=== PATIENT | female | born 1990 | race American Indian/Alaskan Native ===

== ENCOUNTER 2016-11-04 23:35 | Emergency (ER) | payer SELFPAY ==
[2016-11-05 00:05] VITALS: BP 124/56
--- NOTE | 2016-11-05 02:58 | Emergency Department Report ---
- General Chief complaint: Skin/Abscess/Foreign Body Stated complaint: CYST ON LOWER BACK/PAIN Time Seen by Provider: 11/05/16 02:42 Source: patient Mode of arrival: Ambulatory Limitations: No Limitations - History of Present Illness Initial comments: Patient comes in the ER today with complaints of an abscess to the top of her buttocks for the past 5 days. Patient states that she has had this before last summer and they had to cut it open. Patient denies any body aches, fever, vomiting, abdominal pain. MD complaint: abscess/boil -: days(s) (5) - Related Data Previous Rx's Medication Instructions Recorded Last Taken Type Acetaminophen/Codeine [Tylenol 1 tab PO Q6H PRN #20 tab 11/05/16 Unknown Rx /Codeine # 3 tab] Cephalexin [Keflex] 500 mg PO TID #30 capsule 11/05/16 Unknown Rx Fluconazole [Diflucan TAB] 150 mg PO Q72HR PRN #4 tablet 11/05/16 Unknown Rx Sulfamethoxazole/Trimethoprim 1 each PO BID #20 tablet 11/05/16 Unknown Rx [Bactrim DS TAB] Allergies Allergy/AdvReac Type Severity Reaction Status Date / Time No Known Allergies Allergy Verified 11/05/16 00:01 Abscess Boil HPI - HPI Chief Complaint: Skin/Abscess/Foreign Body Stated Complaint: CYST ON LOWER BACK/PAIN Time Seen by Provider: 11/05/16 02:42 Home Medications: Previous Rx's Medication Instructions Recorded Last Taken Type Acetaminophen/Codeine [Tylenol 1 tab PO Q6H PRN #20 tab 11/05/16 Unknown Rx /Codeine # 3 tab] Cephalexin [Keflex] 500 mg PO TID #30 capsule 11/05/16 Unknown Rx Fluconazole [Diflucan TAB] 150 mg PO Q72HR PRN #4 tablet 11/05/16 Unknown Rx Sulfamethoxazole/Trimethoprim 1 each PO BID #20 tablet 11/05/16 Unknown Rx [Bactrim DS TAB] Allergies/Adverse Reactions: Allergies Allergy/AdvReac Type Severity Reaction Status Date / Time No Known Allergies Allergy Verified 11/05/16 00:01 ED Review of Systems ROS: Stated complaint: CYST ON LOWER BACK/PAIN Other details as noted in HPI Constitutional: denies: chills, fever Eyes: denies: eye pain, eye discharge, vision change ENT: denies: ear pain, throat pain Respiratory: denies: cough, shortness of breath, wheezing Cardiovascular: denies: chest pain, palpitations Endocrine: no symptoms reported Gastrointestinal: denies: abdominal pain, nausea, diarrhea Genitourinary: denies: urgency, dysuria, discharge Musculoskeletal: denies: back pain, joint swelling, arthralgia Skin: denies: rash Neurological: denies: headache, weakness, paresthesias Psychiatric: denies: anxiety, depression Hematological/Lymphatic: denies: easy bleeding, easy bruising ED Past Medical Hx - Past Medical History Previous Medical History?: Yes Additional medical history: RECURRENT BOIL - Surgical History Past Surgical History?: No - Social History Smoking Status: Never Smoker Substance Use Type: None - Medications Home Medications: Home Medications Medication Instructions Recorded Confirmed Last Taken Type Acetaminophen/Codeine [Tylenol 1 tab PO Q6H PRN #20 tab 11/05/16 Unknown Rx /Codeine # 3 tab] Cephalexin [Keflex] 500 mg PO TID #30 capsule 11/05/16 Unknown Rx Fluconazole [Diflucan TAB] 150 mg PO Q72HR PRN #4 tablet 11/05/16 Unknown Rx Sulfamethoxazole/Trimethoprim 1 each PO BID #20 tablet 11/05/16 Unknown Rx [Bactrim DS TAB] ED Physical Exam - General Limitations: No Limitations General appearance: alert, in no apparent distress - Head Head exam: Present: atraumatic, normocephalic - Eye Eye exam: Present: normal appearance - ENT ENT exam: Present: mucous membranes moist - Neck Neck exam: Present: normal inspection - Respiratory Respiratory exam: Present: normal lung sounds bilaterally. Absent: respiratory distress - Cardiovascular Cardiovascular Exam: Present: regular rate, normal rhythm. Absent: systolic murmur, diastolic murmur, rubs, gallop - GI/Abdominal GI/Abdominal exam: Present: soft, normal bowel sounds - Extremities Exam Extremities exam: Present: normal inspection - Back Exam Back exam: Present: normal inspection - Neurological Exam Neurological exam: Present: alert, oriented X3 - Psychiatric Psychiatric exam: Present: normal affect, normal mood - Skin Skin exam: Present: warm, dry, intact, normal color, other (mildly erythematous , tender, indurated area noted to superior right buttocks). Absent: rash ED Course Vital Signs 11/05/16 00:01 Temperature 98.8 F Pulse Rate 62 Respiratory 20 Rate Blood Pressure 124/56 O2 Sat by Pulse 100 Oximetry - I & D Right Upper Medial Buttocks Type of Procedure: Simple Site: right upper buttocks Blade Size: 11 I & D Procedure: gauze wick placed Progress: Infiltrated abscess with 6 mL's of lidocaine with epinephrine. Explored wound with forceps and broken up loculations with manipulation and exploration. Large amount of purulent drainage expressed from abscess. ED Medical Decision Making - Medical Decision Making Patient is nontoxic and hemodynamically stable. Patient tolerated incision and drainage of abscess without any complications. I will start patient on some Anaprox appropriately and patient is to return to the ER in 2-3 days for wound packing removal. I will also refer patient to a surgeon for further evaluation to see about preventing recurrence. Patient is in agreement with treatment plan the patient is stable for discharge. Critical care attestation.: If time is entered above; I have spent that time in minutes in the direct care of this critically ill patient, excluding procedure time. ED Disposition Clinical Impression: Pilonidal cyst Disposition: TO HOME OR SELFCARE Is pt being admited?: No Does the pt Need Aspirin: No Condition: Good Instructions: Abscess Incision and Drainage (ED) Prescriptions: Acetaminophen/Codeine [Tylenol /Codeine # 3 tab] 1 tab PO Q6H PRN #20 tab PRN Reason: Pain Cephalexin [Keflex] 500 mg PO TID #30 capsule Sulfamethoxazole/Trimethoprim [Bactrim DS TAB] 1 each PO BID #20 tablet Fluconazole [Diflucan TAB] 150 mg PO Q72HR PRN #4 tablet PRN Reason: Vaginal Irritation Referrals: PRIMARY CAREMD [Primary Care Provider] - 3-5 Days RAFIA ALVARADO MD [Staff Physician] - 3-5 Days Forms: Work/School Release Form(ED) Time of Disposition: 03:33
[2016-11-05] MEDS ORDERED: XYLOCAINE 1%/ EPI 1:100,000 INFILTRATI NR (03:00)
== END 2016-11-05 03:35 | disposition home or self-care (01) ==
LOC: ED 23:35
DX: L05.01 Pilonidal cyst with abscess (principal)
CPT/HCPCS: 99282